=== PATIENT | male | born 1970 | race Caucasian/White ===

== ENCOUNTER 2018-11-05 22:15 | Emergency (ER) | payer BC ==
[~2018-11-05] VITALS: Ht 170.2 cm; Wt 77.3 kg
[2018-11-05 22:21] VITALS: Ht 170.2 cm; Wt 77.3 kg
[2018-11-05] MEDS ORDERED: LIPITOR20 MG PO (22:22)
[2018-11-05] MEDS ORDERED: BLOOD PRESSURE MEDS (22:23)
[2018-11-05] MEDS ORDERED: TORADOL10 MG PO (23:44)
[2018-11-06 00:03] VITALS: BP 134/71
== END 2018-11-06 00:03 | disposition home or self-care (01) ==
LOC: D.ER 22:15
DX: S16.1XXA Strain of muscle, fascia and tendon at neck level, initial encounter (principal); V89.2XXA Person injured in unspecified motor-vehicle accident, traffic, initial encounter